=== PATIENT | female | born 1945 | race Caucasian/White ===

== ENCOUNTER 2023-12-18 06:20 | Day surgery (SDC) | payer MEDICARE, OTHER, SELFPAY ==
[2023-12-07 13:23] VITALS: BMI 24.2
[2023-12-18] VITALS (10 sets, daily range): BP systolic 106–133; BP diastolic 55–81; BMI 24.2
[2023-12-18] MEDS: CYSVIEW KIT 100 MG INTRAVES (07:47)
[2023-12-18] MEDS: NORMOSOL-R 1000 IV (07:47)
[2023-12-18] MEDS: SUBLIMAZE 25 MCG IV ×3 (09:34→10:00)
[2023-12-18] MEDS: SYRINGE NON-PUMP 50 ML IRRIG ×2 (09:35→09:36)
[2023-12-18] MEDS: SYRINGE NON-PUMP 50 MG IRRIG ×2 (09:35→09:36)
[2023-12-18] MEDS: Pyridium 200 MG PO (10:20)
== END 2023-12-18 11:40 | disposition home or self-care (01) ==
LOC: SDS 06:20
PROVIDERS: ATTENDING PHYSICIAN Specialist; FAMILY PHYSICIAN Family Medicine
DX: C67.9 Malignant neoplasm of bladder, unspecified (principal)
CPT/HCPCS: 52234; 52351; C9738; 88307; 74420; 76000; 88341; 88342; A9589

== ENCOUNTER → 2024-05-23 10:24 | Outpatient (REF) | payer MEDICARE, OTHER, SELFPAY | LOC: WDC 10:24 | PROVIDERS: ATTENDING PHYSICIAN Family Medicine | DX: Z12.31 Encounter for screening mammogram for malignant neoplasm of breast (principal) | CPT/HCPCS: 77063; 77067 ==

== ENCOUNTER → 2024-08-09 08:01 | Outpatient (REF) | payer MEDICARE, OTHER, SELFPAY ==
[2024-08-09 09:42] LABS: ALT (SGPT) 20 U/L (0-35); AST (SGOT) 27 U/L (14-36); Albumin 4.1 g/dl (3.5-5.0); Alkaline Phosphatase 59 U/L (38-126); Blood Urea Nitrogen 14 mg/dl (7-17); Calcium 9.7 mg/dl (8.4-10.2); Carbon Dioxide 28 mmol/L (22-30); Chloride 105 mmol/L (98-107); Glucose 94 mg/dl (70-99); Potassium 4.6 mmol/L (3.5-5.1); Sodium 143 mmol/L (135-145); Total Bilirubin 0.6 mg/dl (0.2-1.3); Total Protein 6.6 g/dl (6.3-8.2); eGFR > 60.00
[2024-08-09 09:55] LABS: Free T4 1.88 ng/dl (0.78-2.19)
== END ==
LOC: REG 08:01
PROVIDERS: ATTENDING PHYSICIAN Family Medicine
DX: E03.9 Hypothyroidism, unspecified (principal); K58.0 Irritable bowel syndrome with diarrhea
CPT/HCPCS: 36415; 80053; 84439; 84443

== ENCOUNTER → 2025-05-10 11:21 | Outpatient (REF) | payer MEDICARE, OTHER, SELFPAY ==
[2025-05-10 12:35] LABS: Hematocrit 46.0 % (37.0-47.0); Hemoglobin 15.5 g/dL (12.0-16.0); Mean Corp Hgb Conc. 33.7 g/dL (33.0-37.0); Mean Corpuscular Volume 93.7 fL (81.0-99.0); Nucleated Red Blood Cells % 0 %; Platelet Count 293 10^3/uL (130-400); Red Cell Dist. Width 12.8 % (11.5-14.5)
[2025-05-10 13:12] LABS: Blood Urea Nitrogen 13 mg/dl (7-17); Calcium 9.9 mg/dl (8.4-10.2); Carbon Dioxide 28 mmol/L (22-30); Chloride 105 mmol/L (98-107); Glucose 74 mg/dl (70-99); Potassium 4.6 mmol/L (3.5-5.1); Sodium 139 mmol/L (135-145); eGFR > 60.00
== END ==
LOC: RCS 11:21
PROVIDERS: ATTENDING PHYSICIAN Specialist; FAMILY PHYSICIAN Family Medicine
DX: Z01.818 Encounter for other preprocedural examination (principal)
CPT/HCPCS: 36415; 80048; 85025; 93005

== ENCOUNTER → 2025-05-25 07:52 | Outpatient (REF) | payer MEDICARE, OTHER, SELFPAY | LOC: WDC 07:52 | PROVIDERS: ATTENDING PHYSICIAN Family Medicine | DX: Z12.31 Encounter for screening mammogram for malignant neoplasm of breast (principal) | CPT/HCPCS: 77063; 77067 ==

== ENCOUNTER 2025-06-03 19:06 | Emergency (ER) | payer MEDICARE, OTHER, SELFPAY ==
[2025-06-03 19:11] VITALS: BP 137/74
[2025-06-03 19:23] VITALS: BP 136/81
[2025-06-03 19:28] VITALS: BMI 24.5
--- NOTE | 2025-06-03 19:45 | ED.GENMED ---
History of Present Illness
<Jerilyn Hughes PA-C - Last Filed: 06/04/25 01:53>
General
Chief Complaint: Allergic Reaction
Source: patient
Exam Limitations: none
Time Seen by Provider: 06/03/25 19:44
Nursing documentation reviewed up to this point in time: agreed with
History of Present Illness
History of Present Illness:
Note:
CHIEF COMPLAINT(S)
Allergic reaction after recent medication changes post-knee replacement surgery.
HISTORY OF PRESENT ILLNESS
The patient is an 80-year-old female with past medical history of hypothyroidism, bladder cancer, who underwent right knee replacement surgery on Thursday. She is experiencing an allergic reaction characterized by a rash on her back and increased
hoarseness of her voice, which both began today. The rash is notably itchy, and there is a sense of throat tightness without significant chest tightness. She reports the issues of voice changes and respiratory symptoms started around 4 PM today and
have since remained stable. The patient has experienced similar occurrences in the past without a clear cause established. She has recently started taking several new medications, including oxycodone, aspirin, meloxicam, and ondansetron, following
her surgery. She has taken oxycodone previously for a different condition three years ago without any issues. She denies taking any ustk-ifa-ykarfzz antihistamines or having trouble swallowing but mentions slight throat involvement. She has taken
Tylenol before. Patient thinks she has never taken meloxicam or aspirin before. Patient had the knee replacement done with Dr. Gan.
CHRONIC MEDICAL CONDITIONS SIGNIFICANTLY AFFECTING CARE
The patient recently underwent right knee replacement surgery.
SOCIAL HISTORY
The patient denies any new exposure to known environmental allergens or changes in routine aside from her postoperative care.
MEDICATIONS
- Oxycodone (previous experience without reaction)
- Aspirin
- Meloxicam
- Ondansetron (first-time use)
PHYSICAL EXAM
Nursing notes reviewed and vital signs reviewed.
General: Patient is well appearing and in no acute distress; non-toxic
Skin: Warm and dry, no rashes or lesions
Head: Normocephalic, atraumatic
Eyes: Sclera non-icteric. EOMs intact.
Mouth: Mild pharyngeal erythema, no uvular edema
Cardiac: Regular rate and rhythm, no murmurs
Pulm: Normal respiratory effort, no wheezes, rales, rhonchi
Neuro: CN II-XII intact, no focal neurologic deficits.
Psychiatric: Appropriate mood and affect.
PLAN
- Administer diphenhydramine intravenously for itching.
- Administer histamine receptor antagonists and intravenous fluids.
- Administer corticosteroids to mitigate allergic response.
- Provide albuterol breathing treatment to help with hoarseness and throat tightness.
- Monitor the patient to ensure symptoms do not worsen.
- Review all current medications to identify and potentially discontinue the causative agent of the allergic response.
DIFFERENTIAL DIAGNOSIS
The Differential Diagnosis includes, in no particular order and is not limited to:
1. Drug-induced allergic reaction
2. Environmental allergen exposure
3. Contact dermatitis
4. Food allergy
5. Urticaria
6. Angioedema
7. Viral exanthem
8. Latex allergy
9. Psychological stress-related skin outbreak
10. Other medication side effects
CHART REVIEW
Reviewed operative report from 12/18/2023 patient seen for transurethral resection of bladder tumor
No prior ER physician documentation in [facility] to review
MDM/DISPOSITION
The patient is an 80-year-old female with past medical history of hypothyroidism, bladder cancer, who underwent right knee replacement surgery on Thursday. She is experiencing an allergic reaction characterized by a rash on her back the past few days
and increased hoarseness of her voice, which began today. However, symptoms have been stable since 4 PM and she has not developed trouble breathing, difficulty swallowing, tongue or lip swelling. Patient received 2 neb treatments here and noted
an improvement in her respiratory symptoms. She still feels a bit itchy but that improved as well. There is no clear etiology of patient's allergic reaction other than the new medication she started which she is never taking before including
Zofran, aspirin, and meloxicam. We told her to stop these possible offending agents however considering her recent knee replaced DVT prophylaxis. I discussed case with Dr. Rizvi, Ortho on-call, regarding DVT prophylaxis. Considering possible
allergic reaction, will hold aspirin but will start smaller dose of Eliquis. Patient will be started on Eliquis, prednisone, and famotidine and stopped other agents. Patient stable for discharge discussed follow-up with PCP and Ortho.
Phy Exam
<Jerilyn Hughes PA-C - Last Filed: 06/04/25 01:53>
Physical Exam
Physical Exam:
see hpi
Course
<Jerilyn Hughes PA-C - Last Filed: 06/04/25 01:53>
Orders/Labs/Results
Orders:
Orders
06/03/25 19:54
0.9% Sodium Chloride 500 ml [Nss] 500 ml IV BOLUS
Dexamethasone Sod Phosphate [Decadron] 10 mg IV NOW STA
Diphenhydramine [Benadryl] 25 mg IV NOW STA
Famotidine [Pepcid] 20 mg IV NOW STA
Ipratropium/Albuterol Sulfate [Duoneb] 3 ml INH R NOW ONE
06/03/25 21:00
Ipratropium/Albuterol Sulfate [Duoneb] 3 ml INH R NOW STA
Vital Signs
Initial and Last Documented VS:
Initial Vital Signs
Temp Pulse Resp BP Pulse Ox
97.6 F 90 16 137/74 96
06/03/25 19:11 06/03/25 19:11 06/03/25 19:11 06/03/25 19:11 06/03/25 19:11
Last Documented Vital Signs
Temp Pulse Resp BP Pulse Ox
97.6 F 88 19 103/52 95
06/03/25 19:11 06/03/25 21:35 06/03/25 21:35 06/03/25 22:00 06/03/25 21:35
<Misael Morgan MD - Last Filed: 06/03/25 21:33>
Orders/Labs/Results
Orders:
Orders
06/03/25 19:54
0.9% Sodium Chloride 500 ml [Nss] 500 ml IV BOLUS
Dexamethasone Sod Phosphate [Decadron] 10 mg IV NOW STA
Diphenhydramine [Benadryl] 25 mg IV NOW STA
Famotidine [Pepcid] 20 mg IV NOW STA
Ipratropium/Albuterol Sulfate [Duoneb] 3 ml INH R NOW ONE
06/03/25 21:00
Ipratropium/Albuterol Sulfate [Duoneb] 3 ml INH R NOW STA
Vital Signs
Initial and Last Documented VS:
Initial Vital Signs
Temp Pulse Resp BP Pulse Ox
97.6 F 90 16 137/74 96
06/03/25 19:11 06/03/25 19:11 06/03/25 19:11 06/03/25 19:11 06/03/25 19:11
Last Documented Vital Signs
Temp Pulse Resp BP Pulse Ox
97.6 F 88 19 103/52 95
06/03/25 19:11 06/03/25 21:35 06/03/25 21:35 06/03/25 22:00 06/03/25 21:35
<Jerilyn Hughes PA-C - Last Filed: 06/04/25 01:53>
*Pulse Oximetry
SaO2: 95
Oxygen Mode of Delivery: Room air
Patient hypoxic: no
*Critical Care Note
Total Time (30-74mins, 75-104mins- exclusive of procedures): Not Applicable
ED Attending Note
<Jerilyn Hughes PA-C - Last Filed: 06/04/25 01:53>
-
Portions of this chart may have been created with voice recognition software.� Occasional wrong word or��sound alike� substitutions may have occurred due to the inherent limitations of voice recognition software.
<Misael Morgan MD - Last Filed: 06/03/25 21:33>
ED Attending Note
Patient seen and examined by attending physician: Yes
I performed the substantive portion of visit, reviewed & personally made and approve the management plan that is documented in note by myself or JOSE MARTIN.: Yes
ED Attending Note:
80-year-old female complaining of hives and mild shortness of breath. History of hives in the past. Patient had knee surgery 4 days ago. Has started meloxicam aspirin Zofran.
On exam patient is nontoxic in no distress. She has large hives to her upper back. Her airway is clear. No drooling or stridor. She is currently on a nebulizer treatment. No wheezing currently.
This is clearly an allergic issue. She has been given 25 of Benadryl, 20 of Pepcid, Decadron. No indication for epinephrine at this time. We could give her 25 more Benadryl but she is already on Zyrtec. She is in no respiratory distress
currently appearing as far as stopping meds ideally would stop any of her new medications including the meloxicam aspirin and Zofran. Unlikely to be the narcotic. Also unlikely to be Tylenol. We will check with orthopedics about stopping the
aspirin
Discharge Plan
Departure
Patient Disposition: Home (Routine Discharge)
Date of Disposition: 06/03/25
Time of Disposition: 22:21
Patient with high blood pressure during this ER visit?: Yes
Condition: Good
Discharge Problem:
Allergic reaction
Instructions: Hives (DC), Adverse Drug Reactions, Adult (DC), BLOOD PRESSURE
Prescriptions:
New
prednisone 20 mg tablet
40 mg PO DAILY 5 Days Qty: 10 0RF
famotidine 20 mg tablet
20 mg PO DAILY 5 Days Qty: 5 0RF
Eliquis 2.5 mg tablet
2.5 mg PO ONCE Qty: 30 0RF
No Action
multivitamin Tablet
1 tab PO DAILY
cetirizine [Zyrtec] 10 mg Tablet
10 mg PO HS
ketotifen fumarate [Zaditor] 0.025 % (0.035 %) Drops
1 drp OPHTHALMIC (EYE) DAILY
acetaminophen 500 mg Tablet
1,000 mg PO Q6H PRN (Reason: PAIN)
ascorbic acid (vitamin C) [Vitamin C] 500 mg Tablet
500 mg PO DAILY
levothyroxine 150 mcg Tablet
150 mcg PO MOTUTHSA
lactase [Lactaid] 3,000 unit Tablet
3,000 unit PO PRN PRN (Reason: PRE DAIRY CONSUMPTION)
cholecalciferol (vitamin D3) [Vitamin D3] 25 mcg (1,000 unit) Tablet
25 mcg PO DAILY
omega 4-lgs-[id number]-fish oil [Fish Oil] 1,200 (144-216) mg Capsule
1 cap PO DAILY
Referrals:
UNKNOWN - PT DOES,NOT KNOW [Family Provider]
Activity Restrictions/Additional Instructions:
Please stop taking the meloxicam, aspirin, and Zofran. Please starting tomorrow, start taking Eliquis. Start taking one 2.5 mg tablet once daily. Also start taking Pepcid, one 20 mg tablet once daily for 5 days.
PLEASE RETURN EMERGENCY ROOM SHOULD YOU DEVELOP PLEASE RETURN EMERGENCY DEPARTMENT TO DEVELOP TROUBLE SWALLOWING, TONGUE OR LIP SWELLING, SHORTNESS OF BREATH, CHEST PAIN, LIGHTHEADEDNESS, DIZZINESS, OR ANY OTHER SIGNS OR SYMPTOMS WORRISOME TO YOU.
Interventions
Interventions:
*Risk Screen - Suicide Last Done: 06/03/25 19:08
*General Assessment Last Done: 06/03/25 19:08
*Neglect/Abuse Screening Last Done: 06/03/25 19:08
*ED- Fall Risk Assessment Last Done: 06/03/25 19:08
*ED COVID-19 Vaccine History Last Done: 06/03/25 19:08
*Nursing Disposition Last Done: 06/03/25 22:53
ED- Cardiac Assessment Last Done: 06/03/25 19:28
ED- Pulmonary Assessment Last Done: 06/03/25 19:28
ED-Skin Assessment Last Done: 06/03/25 19:28
Discharge Date and Time
Discharge Date/Time: 06/03/25 22:54
Print Language: NEPALESE
[2025-06-03] MEDS: BENADRYL 25 MG IV (19:57)
[2025-06-03] MEDS: DUONEB 3 ML INH ×2 (19:58→21:10)
[2025-06-03] MEDS: DECADRON 10 MG IV (19:58)
[2025-06-03] MEDS: PEPCID 20 MG IV (19:58)
[2025-06-03] MEDS: NSS 500 IV (19:58)
[2025-06-03 20:00] VITALS: BP 129/61
[2025-06-03 21:35] VITALS: BP 118/65
[2025-06-03 22:00] VITALS: BP 103/52
== END 2025-06-03 22:54 | disposition home or self-care (01) ==
LOC: EMR 19:06
PROVIDERS: EMERGENCY PHYSICIAN Emergency Medicine
DX: T78.40XA Allergy, unspecified, initial encounter (principal); Y92.9 Unspecified place or not applicable; E03.9 Hypothyroidism, unspecified; Z85.51 Personal history of malignant neoplasm of bladder; Z96.651 Presence of right artificial knee joint
CPT/HCPCS: 99284; 94640; 96374; 96375; 96361

== ENCOUNTER → 2025-08-17 11:31 | Outpatient (REF) | payer MEDICARE, OTHER, SELFPAY ==
[2025-08-17 12:27] LABS: ALT (SGPT) 16 U/L (0-35); AST (SGOT) 21 U/L (14-36); Albumin 4.1 g/dl (3.5-5.0); Alkaline Phosphatase 66 U/L (38-126); Blood Urea Nitrogen 15 mg/dl (7-17); Calcium 9.8 mg/dl (8.4-10.2); Carbon Dioxide 30 mmol/L (22-30); Chloride 104 mmol/L (98-107); Glucose 98 mg/dl (70-99); Potassium 4.5 mmol/L (3.5-5.1); Sodium 139 mmol/L (135-145); Total Protein 6.8 g/dl (6.3-8.2); eGFR > 60.00
[2025-08-17 12:57] LABS: TSH 2.31 uIU/ml (0.47-4.68)
== END ==
LOC: REG 11:31
PROVIDERS: ATTENDING PHYSICIAN Family Medicine
DX: E03.9 Hypothyroidism, unspecified (principal)
CPT/HCPCS: 36415; 80053; 84439; 84443

== ENCOUNTER → 2025-08-18 08:10 | Outpatient (REF) | payer MEDICARE, OTHER, SELFPAY ==
[2025-08-18 09:33] LABS: HDL Cholesterol 95 mg/dl; LDL Cholesterol, Calculated 78 mg/dl; Very Low Density Lipoprotein 13 mg/dl (0-30)
== END ==
LOC: REG 08:10
PROVIDERS: ATTENDING PHYSICIAN Family Medicine
DX: E03.9 Hypothyroidism, unspecified (principal)
CPT/HCPCS: 36415; 80061